=== PATIENT | male | born 2005 | race Two or more races ===

== ENCOUNTER 2024-12-18 23:21 | Observation (INO) ==
[2024-12-19 00:14] LABS: Albumin Globulin Ratio 1.8 (0.9-2); Albumin Level 4.9 gm/dl (3.4-5.0); BUN Creatinine Ratio 14.9 (10-20); Bilirubin,Total 1.1 mg/dl (0.2-1.0); Calcium 9.9 mg/dl (8.6-10.3); Creatinine Clr Calc Pharmacy 129.6 ml/min; Globulin 2.7 gm/dl (2.5-4.0); Potassium 4.2 mmol/L (3.5-5.1); Total Protein 7.6 gm/dl (6.0-8.3)
[2024-12-19 00:16] LABS: Hematocrit (blood only) 48.3 % (42.0-52.0); Hemoglobin 16.4 g/dl (14.0-18.0); Mean Corpuscular Hemoglobin 28.4 pg (25.0-34.0); Mean Corpuscular Volume 83.7 fL (80.0-100.0); Mean Platelet Volume 10.8 fL (9.4-12.4); Platelet Count 233 K/uL (130-400); RDW Coefficient of Variation 12.6 % (11.5-14.5); RDW Standard Deviation 38.3 fL (36.4-46.3); Red Blood Count 5.77 M/uL (4.70-6.10); White Blood Count 15.02 K/ul (4.8-10.8)
[2024-12-19 00:17] LABS: Basophils # (auto) 0.03 K/uL (0.00-0.20); Basophils % (auto) 0.2 %; Eosinophils # (auto) 0.02 K/uL (0.00-0.50); Eosinophils % (auto) 0.1 %; Immature Granulocytes # (auto) 0.04 K/uL (0.01-0.20); Immature Granulocytes % (auto) 0.3 %; Lymphocytes # (auto) 0.43 K/uL (1.20-3.40); Lymphocytes % (auto) 2.9 %; Monocytes % (auto) 5.3 %; Neutrophils % (auto) 91.2 %
[2024-12-19] MEDS: ONDANSETRON INJ 2 MG/ML 2 ML VIAL IV STA ×2 (00:27→03:35)
[2024-12-19] MEDS: SODIUM CHLORIDE 0.9% 1,000 ML IV ONE ×3 (00:27→03:36)
--- NOTE | 2024-12-19 00:37 | Emergency Department Note ---
Impression & Plan Vomiting, Acute dehydration, Norovirus Admit to the [facility] ED Provider Note NAME: RIAZ ACEVES AGE: 19 SEX: Male INFORMANT: Patient ED PROVIDER(S): Allyson Ruvalcaba DO CHIEF COMPLAINT: Nausea and vomiting PLAN: Disposition: Admit to the [facility] MEDICAL DECISION MAKING: this is a 19-year-old male patient who presents to the emergency department with headache and vomiting which began around 8 PM this evening. Patient is an otherwise healthy student. He denies any usual symptoms throughout the day today. He denies any significant abdominal pain. He describes multiple episodes of vomiting and some soft stool but no significant diarrhea. Laboratory studies revealed a mild leukocytosis with a white count of 15.0. H&H were stable. Glucose was 107. Renal function was normal. Urinalysis revealed trace ketones and 1+ protein. Total bilirubin was 1.1 but transaminases were normal. Patient was tachycardic on presentation with a normal blood pressure but despite giving IV crystalloids, blood pressure came down and heart rate went up. Patient was given IV Zofran for his nausea. He had no further stooling for hours here in the emergency department. Once he remained hypotensive and tachycardic, a septic protocol was performed. Patient was prophylaxed with IV cefepime. Chest x-ray was unremarkable. Lactate was normal. Procalcitonin was slightly elevated at 0.64. We initially had no source for his infection. He had no signs of meningitis. In fact, his headaches that he presented with resolved shortly after arriving here in the emergency department. He had no neck stiffness. [facility] care. Patient did finally produce a stool specimen which was positive for norovirus. Triage Nursing notes: reviewed and agree With them. Vital Signs: reviewed and unremarkable Additional History obtained from: the girlfriend is at the bedside athletic monitor: Normal sinus rhythm at a rate of 108 Differential Diagnosis: foodborne illness, viral gastritis, dehydration, viral gastroenteritis, UTI, sepsis HPI: 19 year old Male arrives for evaluation of vomiting and headache. around 8 PM this evening, the patient developed a headache and started vomiting. He tried to eat some food but he immediately began to vomit more and has continued vomiting ever since despite trying to take a nap.. PAST MEDICAL HISTORY: None, SOCIAL HISTORY: alok at [facility], [place] MEDICATIONS: none ALLERGIES: none VITALS: See Below PHYSICAL EXAMINATION: HEENT: Head - normocephalic and atraumatic. Pupils are equal, round, and reactive to light. Extraocular eye muscles are intact, and sclera are anicteric. Nose - moist nasal mucosa without discharge. Mouth - moist buccal mucosa. Oropharynx is nonerythematous and there is no tonsillar exudate or edema noted. Neck: Supple; no Cervical lymphadenopathy appreciated Heart: Tachycardic rate and rhythm. There is a normal S1 and S2 with no murmurs, clicks, or gallops appreciated. Lungs: Clear to auscultation bilaterally with no wheezes, rales, or rhonchi. Abdomen: Soft, completely nontender, nondistended, with good bowel sounds. There are no palpable pulsatile masses or hepatosplenomegaly. There is no guarding, rigidity, or rebound noted. Extremities: No evidence of cyanosis, clubbing, or edema. There are easily palpable peripheral pulses. Skin: warm and dry with good turgor and no rashes. emergency department treatment: athletic monitor, IV normal saline bolus x 3 L, IV Zofran, IV cefepime Emergency Department course: The patient was evaluated in room C-7. A complete history and physical was performed. An order was placed for continuous cardiac monitoring. The patient was in a sinus tachycardia at a rate of 108. He was bolused with 1 L of normal saline solution. This made no impact on his heart rate. He was unable to urinate. He was given a second liter of saline. He was given IV Zofran for his nausea. His heart rate continued to rise. He was given 1/3 L of normal saline solution and was finally able to urinate. Patient was feeling much better and plans were made for the patient to be discharged but his heart rate remained in the 120-130 range. Patient showed signs of orthostasis upon standing. He became pale and his blood pressure would drop. At this point the decision was made to keep the patient here in the hospital and pursue a septic workup even though the patient overall was feeling much better and was no longer vomiting. I discussed the case with the [facility] Hospitalist and they will evaluate for further inpatient care. I spoke with the patient and his girlfriend multiple times throughout his stay here in the emergency department about his persistent tachycardia and episodes of hypotension. At times, the patient would feel better and was able to drink clear liquids but then would vomit. The patient definitely continued to show signs of orthostasis with position change. Past Med/Surg History Problem List (Updated 12/19/24 @ 19:19 by Allyson Ruvalcaba DO) Norovirus (Acute) Headache Abdominal pain Sepsis Acute dehydration (Acute) Vomiting (Acute) Social History Smoking Status: Never smoker Tobacco Type: Declines Second Hand Exposure: No; Do You Dip or Chew Tobacco: No; Tobacco Cessation Education Requested by Patient: No Hx Alcohol Use: No Hx Substance Use: No Preferred Language: Brazilian Communication Ability: Effective Clip On Sunglasses Assembler Required: No Beliefs That Will Affect Care: None Current Living Situation: Other Current Living Situation Comment: [employer] student with one other roomate Feels Safe at Home: Yes Safety Concerns: Feels Safe At This Time Assistive Devices: None Allergies Allergies Allergy/AdvReac Type Severity Reaction Status Date / Time No Known Allergies Allergy Verified 12/19/24 09:15 Home Meds Home Medications Medication Instructions Recorded Confirmed No Known Home Medications 10/07/24 12/19/24 Results & Data (ED) Vital Signs Vital Signs - 24 hr 12/18/24 23:23 12/18/24 23:38 12/19/24 00:37 Temperature 36.8 C Temperature Source Temporal Artery Scan Pulse Rate 116 H 88 102 H Pulse Rate [Left Radial] Pulse Rate from SpO2 Sensor Pulse Rhythm Regular Regular Pulse Rhythm [Left Radial] Pulse Strength [Left Radial] Respiratory Rate 18 20 20 Respiratory Effort / Characteristics Non-Labored Respiratory Depth Normal Respiratory Pattern Blood Pressure 112/73 129/68 Blood Pressure [Left Arm] Blood Pressure Mean 86 86 Blood Pressure Mean [Left Arm] Pulse Oximetry 99 99 96 Oxygen Delivery Method Room Air Room Air Sepsis Recent Fever Within 48 Hours No Sepsis New/Unexplained Change in Mental Status N/A Sepsis Action Taken by Nursing No Action Required 12/19/24 01:00 12/19/24 01:00 12/19/24 01:00 Temperature Temperature Source Pulse Rate 108 H Pulse Rate [Left Radial] Pulse Rate from SpO2 Sensor 108 H Pulse Rhythm Pulse Rhythm [Left Radial] Pulse Strength [Left Radial] Respiratory Rate Respiratory Effort / Characteristics Respiratory Depth Respiratory Pattern Blood Pressure 105/67 105/67 105/67 Blood Pressure [Left Arm] Blood Pressure Mean 76 76 79 Blood Pressure Mean [Left Arm] Pulse Oximetry 93 Oxygen Delivery Method Sepsis Recent Fever Within 48 Hours Sepsis New/Unexplained Change in Mental Status Sepsis Action Taken by Nursing 12/19/24 01:30 12/19/24 02:00 12/19/24 02:40 Temperature Temperature Source Pulse Rate 120 H Pulse Rate [Left Radial] 124 H Pulse Rate from SpO2 Sensor 118 H 116 H Pulse Rhythm Pulse Rhythm [Left Radial] Regular Pulse Strength [Left Radial] Normal Respiratory Rate 14 20 Respiratory Effort / Characteristics Non-Labored Spontaneous Respiratory Depth Normal Respiratory Pattern Regular Blood Pressure 96/64 L 100/60 Blood Pressure [Left Arm] 84/57 L Blood Pressure Mean 74 73 Blood Pressure Mean [Left Arm] 66 Pulse Oximetry 96 94 94 Oxygen Delivery Method Room Air Sepsis Recent Fever Within 48 Hours Sepsis New/Unexplained Change in Mental Status Sepsis Action Taken by Nursing 12/19/24 03:05 12/19/24 03:30 12/19/24 03:30 Temperature Temperature Source Pulse Rate 123 H 145 H 133 H Pulse Rate [Left Radial] Pulse Rate from SpO2 Sensor 123 H 135 H Pulse Rhythm Pulse Rhythm [Left Radial] Pulse Strength [Left Radial] Respiratory Rate 13 25 H Respiratory Effort / Characteristics Respiratory Depth Respiratory Pattern Blood Pressure 104/62 124/101 H Blood Pressure [Left Arm] Blood Pressure Mean 76 106 Blood Pressure Mean [Left Arm] Pulse Oximetry 96 94 Oxygen Delivery Method Sepsis Recent Fever Within 48 Hours Sepsis New/Unexplained Change in Mental Status Sepsis Action Taken by Nursing 12/19/24 04:01 12/19/24 04:30 12/19/24 05:00 Temperature Temperature Source Pulse Rate 122 H 124 H 126 H Pulse Rate [Left Radial] Pulse Rate from SpO2 Sensor 121 H 127 H Pulse Rhythm Pulse Rhythm [Left Radial] Pulse Strength [Left Radial] Respiratory Rate 20 24 21 Respiratory Effort / Characteristics Respiratory Depth Respiratory Pattern Blood Pressure 89/53 L 82/49 L 99/50 L Blood Pressure [Left Arm] Blood Pressure Mean 60 57 69 Blood Pressure Mean [Left Arm] Pulse Oximetry 94 95 94 Oxygen Delivery Method Sepsis Recent Fever Within 48 Hours Sepsis New/Unexplained Change in Mental Status Sepsis Action Taken by Nursing 12/19/24 05:30 12/19/24 06:30 12/19/24 08:00 Temperature Temperature Source Pulse Rate 122 H 124 H Pulse Rate [Left Radial] 128 H Pulse Rate from SpO2 Sensor 123 H 122 H Pulse Rhythm Pulse Rhythm [Left Radial] Pulse Strength [Left Radial] Respiratory Rate 22 15 20 Respiratory Effort / Characteristics Respiratory Depth Respiratory Pattern Blood Pressure 100/51 L 86/59 L Blood Pressure [Left Arm] 106/69 Blood Pressure Mean 64 72 Blood Pressure Mean [Left Arm] 81 Pulse Oximetry 93 95 94 Oxygen Delivery Method Room Air Sepsis Recent Fever Within 48 Hours Sepsis New/Unexplained Change in Mental Status Sepsis Action Taken by Nursing Laboratory Data 12/19/24 07:46 12/19/24 16:17 Lab Results 12/18/24 12/19/24 12/19/24 Range/Units 23:45 00:00 06:50 WBC 15.02 H (4.8-10.8) K/ul RBC 5.77 (4.70-6.10) M/uL Hgb 16.4 (14.0-18.0) g/dl Hct 48.3 (42.0-52.0) % MCV 83.7 (80.0-100.0) fL MCH 28.4 (25.0-34.0) pg MCHC 34.0 (32.0-36.0) g/dL RDW Std Deviation 38.3 (36.4-46.3) fL RDW Coeff of Yodit 12.6 (11.5-14.5) % Plt Count 233 (130-400) K/uL MPV 10.8 (9.4-12.4) fL Immature Gran % (Auto) 0.3 % Neut % (Auto) 91.2 % Lymph % (Auto) 2.9 % [place] % (Auto) 5.3 % Eos % (Auto) 0.1 % Baso % (Auto) 0.2 % Neut # (Auto) 13.70 H (1.40-6.50) K/uL Lymph # (Auto) 0.43 L (1.20-3.40) K/uL [place] # (Auto) 0.80 H (0.11-0.59) K/uL Eos # (Auto) 0.02 (0.00-0.50) K/uL Baso # (Auto) 0.03 (0.00-0.20) K/uL Immature Gran # (Auto) 0.04 (0.01-0.20) K/uL Sodium 138 (136-145) mmol/L Potassium 4.2 (3.5-5.1) mmol/L Chloride 104 (98-107) mmol/L Carbon Dioxide 27 (21-32) mmol/L Anion Gap 7 (3-11) BUN 15 (6-23) mg/dl Creatinine 1.01 (0.6-1.4) mg/dl Est Cr Clr Drug Dosing 129.6 ml/min eGFR 108.51 BUN/Creatinine Ratio 14.9 (10-20) Glucose 107 H (70-99(Fasting)) mg/dl Lactate (0.4-2.0) mmol/L Calcium 9.9 (8.6-10.3) mg/dl Magnesium (1.7-2.4) mg/dl Total Bilirubin 1.1 H (0.2-1.0) mg/dl Direct Bilirubin (0-0.2) mg/dl AST 22 (13-39) U/L ALT 32 (7-52) U/L Alkaline Phosphatase 59 (34-104) U/L Total Creatine Kinase (30-223) U/L C-Reactive Protein (0-0.5) mg/dl Total Protein 7.6 (6.0-8.3) gm/dl Albumin 4.9 (3.4-5.0) gm/dl Globulin 2.7 (2.5-4.0) gm/dl Albumin/Globulin Ratio 1.8 (0.9-2) Lipase (11-82) U/L Procalcitonin (0-0.5) ng/ml Urine Color Yellow Urine Appearance Clear (Clear) Urine pH 8.5 H (4.5-7.5) Ur Specific [place] 1.033 H (1.000-1.030) Urine Protein 1+ H (Negative) Urine Glucose (UA) Negative (Negative) Urine Ketones Trace H (Negative) Urine Blood Negative (Negative) Urine Nitrite Negative (Negative) Urine Bilirubin Negative (Negative) Urine Urobilinogen Negative (Negative) Ur Leukocyte Esterase Negative (Negative) Urine WBC (Auto) 0-5 (0-5) /hpf Urine RBC (Auto) 0-2 (0-2) /hpf U Hyaline Cast (Auto) 0-2 (0-2) /lpf U Epithel Cells (Auto) 0-2 (0-2) /hpf Urine Bacteria (Auto) None Seen (None Seen) Adenovirus (PCR) Not Detected (NotDetected) B. pertussis DNA (PCR) Not Detected (NotDetected) B.parapertussis DNA PCR Not Detected (NotDetected) C. pneumoniae DNA (PCR) Not Detected (NotDetected) Coronavirus OC43 (PCR) Not Detected (NotDetected) Coronavirus HKU1 (PCR) Not Detected (NotDetected) Coronavirus 229E (PCR) Not Detected (NotDetected) SARS-CoV-2 (PCR) Not Detected (NotDetected) Coronavirus NL63 (PCR) Not Detected (NotDetected) Human Metapneumovir PCR Not Detected (NotDetected) Influenza Type A (PCR) Not Detected (NotDetected) Influenza Type B (PCR) Not Detected (NotDetected) M. pneumoniae (PCR) Not Detected (NotDetected) Parainfluenza 1 (PCR) Not Detected (NotDetected) Parainfluenza 2 (PCR) Not Detected (NotDetected) Parainfluenza 3 (PCR) Not Detected (NotDetected) Parainfluenza 4 (PCR) Not Detected (NotDetected) RSV (PCR) Not Detected (NotDetected) Entero/Rhino (PCR) Not Detected (NotDetected) 12/19/24 12/19/24 Range/Units 07:46 07:53 WBC 7.72 (4.8-10.8) K/ul RBC (4.70-6.10) M/uL Hgb (14.0-18.0) g/dl Hct (42.0-52.0) % MCV (80.0-100.0) fL MCH (25.0-34.0) pg MCHC (32.0-36.0) g/dL RDW Std Deviation (36.4-46.3) fL RDW Coeff of Yodit (11.5-14.5) % Plt Count (130-400) K/uL MPV (9.4-12.4) fL Immature Gran % (Auto) 0.4 % Neut % (Auto) 93.3 % Lymph % (Auto) 3.0 % [place] % (Auto) 3.2 % Eos % (Auto) 0.0 % Baso % (Auto) 0.1 % Neut # (Auto) 7.20 H (1.40-6.50) K/uL Lymph # (Auto) 0.23 L (1.20-3.40) K/uL [place] # (Auto) 0.25 (0.11-0.59) K/uL Eos # (Auto) 0.00 (0.00-0.50) K/uL Baso # (Auto) 0.01 (0.00-0.20) K/uL Immature Gran # (Auto) 0.03 (0.01-0.20) K/uL Sodium 138 (136-145) mmol/L Potassium 3.7 (3.5-5.1) mmol/L Chloride 107 (98-107) mmol/L Carbon Dioxide 24 (21-32) mmol/L Anion Gap 7 (3-11) BUN 15 (6-23) mg/dl Creatinine 1.01 (0.6-1.4) mg/dl Est Cr Clr Drug Dosing 129.6 ml/min eGFR 108.51 BUN/Creatinine Ratio 14.9 (10-20) Glucose 113 H (70-99(Fasting)) mg/dl Lactate 1.0 (0.4-2.0) mmol/L Calcium 8.7 (8.6-10.3) mg/dl Magnesium 1.6 L (1.7-2.4) mg/dl Total Bilirubin 1.2 H (0.2-1.0) mg/dl Direct Bilirubin 0.2 (0-0.2) mg/dl AST 18 (13-39) U/L ALT 26 (7-52) U/L Alkaline Phosphatase 46 (34-104) U/L Total Creatine Kinase 258 H (30-223) U/L C-Reactive Protein 3.44 H (0-0.5) mg/dl Total Protein 6.3 (6.0-8.3) gm/dl Albumin 4.1 (3.4-5.0) gm/dl Globulin (2.5-4.0) gm/dl Albumin/Globulin Ratio (0.9-2) Lipase 19 (11-82) U/L Procalcitonin 0.64 H (0-0.5) ng/ml Urine Color Urine Appearance (Clear) Urine pH (4.5-7.5) Ur Specific [place] (1.000-1.030) Urine Protein (Negative) Urine Glucose (UA) (Negative) Urine Ketones (Negative) Urine Blood (Negative) Urine Nitrite (Negative) Urine Bilirubin (Negative) Urine Urobilinogen (Negative) Ur Leukocyte Esterase (Negative) Urine WBC (Auto) (0-5) /hpf Urine RBC (Auto) (0-2) /hpf U Hyaline Cast (Auto) (0-2) /lpf U Epithel Cells (Auto) (0-2) /hpf Urine Bacteria (Auto) (None Seen) Adenovirus (PCR) (NotDetected) B. pertussis DNA (PCR) (NotDetected) B.parapertussis DNA PCR (NotDetected) C. pneumoniae DNA (PCR) (NotDetected) Coronavirus OC43 (PCR) (NotDetected) Coronavirus HKU1 (PCR) (NotDetected) Coronavirus 229E (PCR) (NotDetected) SARS-CoV-2 (PCR) (NotDetected) Coronavirus NL63 (PCR) (NotDetected) Human Metapneumovir PCR (NotDetected) Influenza Type A (PCR) (NotDetected) Influenza Type B (PCR) (NotDetected) M. pneumoniae (PCR) (NotDetected) Parainfluenza 1 (PCR) (NotDetected) Parainfluenza 2 (PCR) (NotDetected) Parainfluenza 3 (PCR) (NotDetected) Parainfluenza 4 (PCR) (NotDetected) RSV (PCR) (NotDetected) Entero/Rhino (PCR) (NotDetected) Administered Medications Sodium Chloride (Nss) 1,000 mls @ 125 mls/hr IV .Q8H RODRI Stop: 12/20/24 01:14 Last Admin: 12/19/24 17:15 Dose: 125 mls/hr Documented By: Infusion: 12/19/24 17:15 Dose: Infused Documented By: Admin: 12/19/24 11:05 Dose: 125 mls/hr Documented By: TANNA Cefepime HCl (Maxipime 2000mg) 2,000 mg in 20 mls @ 5 mls/min IV Q8H RODRI; Protocol Stop: 12/29/24 15:59 Last Admin: 12/19/24 17:11 Dose: 5 mls/min Documented By: EP Metronidazole (Flagyl) 500 mg in 100 mls @ 100 mls/hr IV Q8H RODRI; Protocol Stop: 12/29/24 16:59 Last Infusion: 12/19/24 18:15 Dose: Infused Documented By: Admin: 12/19/24 17:12 Dose: 100 mls/hr Documented By: EP Promethazine HCl (Phenergan) 12.5 mg in 50.5 mls @ 202 mls/hr IV Q6H PRN PRN Reason: Nausea And Vomiting Stop: 01/18/25 12:51 Last Admin: 12/19/24 18:54 Dose: 202 mls/hr Documented By: EP Acetaminophen (Ofirmev) 1,000 mg in 100 mls @ 400 mls/hr IV Q8H PRN PRN Reason: Pain or Fever Stop: 12/22/24 12:51 Last Admin: 12/19/24 18:57 Dose: 400 mls/hr Documented By: EP Ketorolac Tromethamine (Ketorolac Tromethamine 15 Mg/Ml Vial) 10 mg IM Q6H PRN PRN Reason: Pain Last Admin: 12/19/24 15:26 Dose: 10 mg Documented By: EP Ondansetron HCl (Ondansetron Inj 2 Mg/Ml 2 Ml Vial) 4 mg IV Q6H PRN PRN Reason: Nausea Stop: 01/18/25 08:30 Last Admin: 12/19/24 15:28 Dose: 4 mg Documented By: EP Discontinued Medications Sodium Chloride (Nss) 1,000 mls @ 999 mls/hr IV .Q1H1M ONE Stop: 12/19/24 01:22 Last Infusion: 12/19/24 01:29 Dose: Infused Documented By: Admin: 12/19/24 00:27 Dose: 999 mls/hr Documented By: DVEI Sodium Chloride (Nss) 1,000 mls @ 999 mls/hr IV .Q1H1M ONE Stop: 12/19/24 02:26 Last Infusion: 12/19/24 03:49 Dose: Infused Documented By: Admin: 12/19/24 01:28 Dose: 999 mls/hr Documented By: DEVI Sodium Chloride (Nss) 1,000 mls @ 999 mls/hr IV .Q1H1M ONE Stop: 12/19/24 04:25 Last Infusion: 12/19/24 05:50 Dose: Infused Documented By: Admin: 12/19/24 03:36 Dose: 999 mls/hr Documented By: DEVI Cefepime HCl (Maxipime 2000mg) 2,000 mg in 20 mls @ 5 mls/min IV NOW STA; Protocol Stop: 12/19/24 07:47 Last Admin: 12/19/24 08:01 Dose: 5 mls/min Documented By: TANNA Metronidazole (Flagyl) 500 mg in 100 mls @ 100 mls/hr IV NOW STA; Protocol Stop: 12/19/24 09:48 Last Infusion: 12/19/24 11:05 Dose: Infused Documented By: Admin: 12/19/24 09:54 Dose: 100 mls/hr Documented By: TANNA Pantoprazole Sodium (Protonix) 40 mg in 10 mls @ 5 mls/min IV NOW ONE Stop: 12/19/24 08:50 Last Admin: 12/19/24 09:54 Dose: 5 mls/min Documented By: TANNA Magnesium Sulfate/Dextrose (Magnesium Sulfate / D5w) 1 gm in 100 mls @ 50 mls/hr IV ONE ONE Stop: 12/19/24 11:05 Last Infusion: 12/19/24 13:35 Dose: Infused Documented By: Admin: 12/19/24 11:05 Dose: 50 mls/hr Documented By: TANNA Ioversol (Optiray 320 100ml) 94 ml IV ONCE ONE Stop: 12/19/24 09:06 Last Admin: 12/19/24 09:05 Dose: 94 ml Documented By: AMRITA Ondansetron HCl (Ondansetron Inj 2 Mg/Ml 2 Ml Vial) 4 mg IV NOW STA Stop: 12/19/24 00:23 Last Admin: 12/19/24 00:27 Dose: 4 mg Documented By: DEVI Ondansetron HCl (Ondansetron Inj 2 Mg/Ml 2 Ml Vial) 4 mg IV NOW STA Stop: 12/19/24 03:32 Last Admin: 12/19/24 03:35 Dose: 4 mg Documented By: DEVI Imaging Data Radiologist's Impression: Chest X-Ray 12/19/24 07:08 XR chest 1V portable CLINICAL HISTORY: eval for sepsis COMPARISON STUDY: None FINDINGS: Heart size and pulmonary vasculature are normal. Inspiration is shallow. There is mild stranding opacity in the lung bases. No other consolidation or pleural effusion. No pneumothorax. IMPRESSION: Shallow inspiration with likely mild lung base atelectasis. Follow- up as clinically indicated. ACT 112: Negative or not required by law. Electronically signed by: Donald Crowe M.D. 12/19/2024 8:12 AM Abdomen/Pelvis CT 12/19/24 08:[address] WITH IV CONTRAST CT DOSE: 1238.58 mGy.cm HISTORY: eval for appy or sbo TECHNIQUE: Multiaxial CT images of the abdomen and pelvis were performed following the IV administration of 90 cc of Optiray, A dose lowering technique was utilized adhering to the principles of ALARA. COMPARISON STUDY: None FINDINGS: There is mild dependent atelectasis in lung bases. ABDOMEN: Liver, gallbladder, spleen, pancreas, and adrenal glands are unremarkable. Kidneys show no hydronephrosis or calculi. No abdominal aortic aneurysm. Pelvis: Prostate is unremarkable. Urinary bladder is nondistended. There is moderate retained stool. Normal appendix. No bowel inflammation or obstruction. No free fluid, free air, or abscess. No enlarged adenopathy. Osseous structures: No acute osseous findings. IMPRESSION: No acute findings. ACT 112: Negative or not required by law. The above report was generated using voice recognition software. It may contain grammatical, syntax or spelling errors. Electronically signed by: Donald Crowe M.D. 12/19/2024 9:19 AM Discharge Plan Visit Data Chief Complaint: Vomiting Stated Complaint: ABD PAIN,VOMITING ED Provider: Allyson Ruvalcaba Discharge Problem: Vomiting, Acute dehydration, Norovirus Patient Disposition: Admitted As Inpatient Discharge Instructions Interventions: ED Discharge Assessment Last Done: 12/19/24 11:50
[2024-12-19 01:12] LABS: Appearance Urine Clear (Clear); Bacteria Urine Automated None Seen (None Seen); Bilirubin Urine Negative (Negative); Blood Urine Negative (Negative); Cast Urine Automated 0-2 /lpf (0-2); Color Urine Yellow; Epithelial Cell Urine Auto 0-2 /hpf (0-2); Glucose Urine UA Negative (Negative); Ketones Urine Trace (Negative); Leukocyte Esterase Urine Negative (Negative); Nitrite Urine Negative (Negative); Protein Urine 1+ (Negative); RBC Urine Automated 0-2 /hpf (0-2); Specific Gravity Urine 1.033 (1.000-1.030); Urobilinogen Urine Negative (Negative); WBC Urine Automated 0-5 /hpf (0-5); pH Urine 8.5 (4.5-7.5)
[2024-12-19] MEDS: CEFEPIME 2000MG 2,000 MG/20 ML SYR IV STA (08:01)
[2024-12-19 08:06] LABS: White Blood Count 7.72 K/ul (4.8-10.8)
--- NOTE | 2024-12-19 08:13 | XRay Report ---
XR chest 1V portable CLINICAL HISTORY: eval for sepsis COMPARISON STUDY: None FINDINGS: Heart size and pulmonary vasculature are normal. Inspiration is shallow. There is mild stra nding opacity in the lung bases. No other consolidation or pleural effusion. No pneumothorax. IMPRESSION: Shallow inspiration with likely mild lung base atelectasis. Follow-up as clinically nico cated. ACT 112: Negative or not required by law. Electronically signed by: Donald Crowe M.D. 12/19/2024 8:12 AM
[2024-12-19 08:35] LABS: Basophils # (auto) 0.01 K/uL (0.00-0.20); Basophils % (auto) 0.1 %; Immature Granulocytes # (auto) 0.03 K/uL (0.01-0.20); Immature Granulocytes % (auto) 0.4 %; Lymphocytes # (auto) 0.23 K/uL (1.20-3.40); Monocytes # (auto) 0.25 K/uL (0.11-0.59); Monocytes % (auto) 3.2 %; Neutrophils % (auto) 93.3 %
[2024-12-19 08:37] LABS: Adenovirus PCR Not Detected (NotDetected); Bordetella parapertussis PCR Not Detected (NotDetected); Bordetella pertussis PCR Not Detected (NotDetected); Chlamydia pneumoniae PCR Not Detected (NotDetected); Coronavirus 229E PCR Not Detected (NotDetected); Coronavirus CoV-2 (COVID19)PCR Not Detected (NotDetected); Coronavirus HKU1 PCR Not Detected (NotDetected); Coronavirus NL63 PCR Not Detected (NotDetected); Coronavirus OC43PCR Not Detected (NotDetected); Human Metapneumovirus PCR Not Detected (NotDetected); Influenza A PCR Not Detected (NotDetected); Influenza B PCR Not Detected (NotDetected); Mycoplasma pneumoniae PCR Not Detected (NotDetected); Parainfluenza Virus 1 PCR Not Detected (NotDetected); Parainfluenza Virus 2 PCR Not Detected (NotDetected); Parainfluenza Virus 3 PCR Not Detected (NotDetected); Parainfluenza Virus 4 PCR Not Detected (NotDetected); Respiratory Syncytial VirusPCR Not Detected (NotDetected); Rhinovirus/Enterovirus PCR Not Detected (NotDetected)
--- NOTE | 2024-12-19 08:37 | History & Physical Report ---
Date of Service December 19, 2024 Assessment & Plan (1) Vomiting: (2) Sepsis: (3) Abdominal pain: (4) Headache: Plan This is a 19 year old gentleman with no past medical history who presented to the ED on 12/19/24 for a chief complaint of headache and vomiting. #sepsis POA/abdominal pain/vomiting Etiology of sepsis currently unknown but likely secondary to abdominal source. CTAP negative; CXR negative Urinalysis negative; respiratory biofire negative. Lactate WNL, procal elevated at 0.64, CRP elevated at 3.44 BMP w/ stable renal function/electrolytes. Mag low at 1.6 s/p IV repletion TB 1.1 --> 1.2, AST/ALT WNL WBC 15.02 --> 7.72 CK and Lipase pending. BC pending; stool biofire pending Continue IV Cefepime + Flagyl on admission, tailor based on culture results. PRN for nausea/vomitinst line Zofran, 2nd line phenergan, 3rd line compazine IVF fluids continued upon admission maintain NPO status pending stabilization of symptoms #headache Kernig and brudzinski sign negative Pain control w/ Tylenol 1st line, Toradol 2nd line (max 6 doses) DVT prophylaxis: SCD's, encourage ambulation Code status: full Case was discussed with Dr. Rueda at time of admission. History of Present Illness Primary Care Provider: [facility] This is a 19 year old gentleman with no past medical history who presented to the ED on 12/19/24 for a chief complaint of headache and vomiting. Patient reports that around 8pm he had a sudden onset of a severe headache. He then began vomiting profusely there after. He has not had a BM since this began. He admits to epigastric abdominal pain. He denies neck pain. He is experiencing muscle cramps and photophobia. Reports since he got to the ER that his headache has waxed and waned but is triggered most by the lights. He denies a history of migraines but reports his mother has a history of them. Denies fevers or chills. Denies any urinary symptoms. Denies tobacco, alcohol, or drug use, including no marijuana use. He reports this has never happened before. He denies sick contacts recently. While in the ED he was found to have leukocytosis of 15.02, negative CXR. He was hypotensive and tachycardic. He was given 3L of NSS, IV Cefepime, and Zofran. He had just had an episode of emesis prior to our encounter. Allergies Allergy/AdvReac Type Severity Reaction Status Date / Time No Known Allergies Allergy Verified 12/19/24 09:15 Home Medications Medication Instructions Recorded Confirmed Type No Known Home Medications 10/07/24 12/19/24 History Past Med/Surg History Problem List (Updated 12/19/24 @ 19:19 by Allyson Ruvalcaba, DO) Norovirus (Acute) Headache Abdominal pain Sepsis Acute dehydration (Acute) Vomiting (Acute) Social History Smoking Status: Never smoker Tobacco Type: Declines Second Hand Exposure: No; Do You Dip or Chew Tobacco: No; Hx Alcohol Use: No Hx Substance Use: No Preferred Language: [place] Communication Ability: Effective Particle Board Supervisor Required: No Beliefs That Will Affect Care: None Current Living Situation: Other Current Living Situation Comment: [employer] student with one other roomate Feels Safe at Home: Yes Assistive Devices: None Physical Exam Constitutional: WD/WN, vitals as above Respiratory: normal respiratory effort, lungs clear to auscultation Cardiovascular: tachycardia, no murmur, no edema Gastrointestinal (Abdomen): + tenderness to palpation in upper abdom inal quadrants. Neurologic: negative Kernig and negative brudzinski Psychiatric: A+Ox3, euthymic affect Results & Data Results & Data Vital Signs (Past 12 Hours) Vital Signs Temp Pulse Pulse Resp BP BP Pulse Ox 12/19/24 08:00 128 H 20 106/69 94 12/19/24 06:30 124 H 15 86/59 L 95 12/19/24 05:30 122 H 22 100/51 L 93 12/19/24 05:00 126 H 21 99/50 L 94 12/19/24 04:30 124 H 24 82/49 L 95 12/19/24 04:01 122 H 20 89/53 L 94 12/19/24 03:30 133 H 25 H 124/101 H 94 12/19/24 03:30 145 H 12/19/24 03:05 123 H 13 104/62 96 12/19/24 02:40 124 H 20 84/57 L 94 12/19/24 02:00 100/60 94 12/19/24 01:30 120 H 14 96/64 L 96 12/19/24 01:00 108 H 105/67 93 12/19/24 01:00 105/67 12/19/24 01:00 105/67 12/19/24 00:37 102 H 20 129/68 96 12/18/24 23:38 88 20 99 12/18/24 23:23 36.8 C 116 H 18 112/73 99 O2 Del Method 12/19/24 08:00 Room Air 12/19/24 06:30 12/19/24 05:30 12/19/24 05:00 12/19/24 04:30 12/19/24 04:01 12/19/24 03:30 12/19/24 03:30 12/19/24 03:05 12/19/24 02:40 Room Air 12/19/24 02:00 12/19/24 01:30 12/19/24 01:00 12/19/24 01:00 12/19/24 01:00 12/19/24 00:37 12/18/24 23:38 Room Air 12/18/24 23:23 Room Air Supervising Physician Co-Signing Physician Notes During face to face encounter, I obtained a history and physical examination, and I discussed plan of care and answered all of the patient's questions.. I discussed plan of care with ALEX Sultana. I reviewed above note and agree with it except for the following: Patient admitted with sepsis. Given his tachycardia and fever, concern over bacterial infection. Place antibiotics, doubt meningitis as no nuchal rigiditiy. awaiting stool samples. order ct scan of abd due to abd. pain. PG Care Time/CCT Total # of Minutes Spent Total Time Spent with Patient: Total time spent is greater than 50% in coordination of care (as documented) at patient's floor/unit and/or counseling patient: Coding Level of Care Code 80442 INT INP/OBS CARE 3/75MIN Diagnoses Vomiting R11.10 Sepsis A41.9 Abdominal pain R10.9 Headache R51.9
[2024-12-19 09:02] LABS: Albumin Level 4.1 gm/dl (3.4-5.0); BUN Creatinine Ratio 14.9 (10-20); Bilirubin Direct 0.2 mg/dl (0-0.2); Bilirubin,Total 1.2 mg/dl (0.2-1.0); C Reactive Protein 3.44 mg/dl (0-0.5); Calcium 8.7 mg/dl (8.6-10.3); Creatinine Clr Calc Pharmacy 129.6 ml/min; Magnesium 1.6 mg/dl (1.7-2.4); Potassium 3.7 mmol/L (3.5-5.1); Total Protein 6.3 gm/dl (6.0-8.3)
[2024-12-19] MEDS: OPTIRAY 320 100ml IV ONE (09:05)
--- NOTE | 2024-12-19 09:21 | CT Scan Report ---
ABDOMEN AND PELVIS CT WITH IV CONTRAST CT DOSE: 1238.58 mGy.cm HISTORY: eval for appy or sbo TECHNIQUE: Multiaxial CT images of the abdomen and pelvis were performed following the IV administrat ion of 90 cc of Optiray, A dose lowering technique was utilized adhering to the principles of ALARA. COMPARISON STUDY: None FINDINGS: There is mild dependent atelectasis in lung bases. ABDOMEN: Liver, gallbladder, spleen, pancreas, and adrenal glands are unremarkable. Kidneys show no h ydronephrosis or calculi. No abdominal aortic aneurysm. Pelvis: Prostate is unremarkable. Urinary bladder is nondistended. There is moderate retained stool. Normal appendix. No bowel inflammation or obstruction. No free fluid, free air, or abscess. No enlarg ed adenopathy. Osseous structures: No acute osseous findings. IMPRESSION: No acute findings. ACT 112: Negative or not required by law. The above report was generated using voice recognition software. It may contain grammatical, syntax o r spelling errors. Electronically signed by: Donald Crowe M.D. 12/19/2024 9:19 AM
[2024-12-19] MEDS: PANTOprazole 40 MG/10 ML SYR IV ONE (09:54)
[2024-12-19] MEDS: metroNIDAZOLE 500 MG/100 ML BAG IV STA (09:54)
[2024-12-19] MEDS: SODIUM CHLORIDE 0.9% 1,000 ML IV SCH (11:05)
[2024-12-19] MEDS: MAGNESIUM SULFATE / D5W 1 GM/100 ML BAG IV ONE (11:05)
[2024-12-19] MEDS ORDERED: PROCHLORPERAZINE 5 MG in SYRINGE 4 ML IV PRN (12:52)
--- NOTE | 2024-12-19 14:11 | Electrocardiogram Report ---
Test Reason : Blood Pressure : */* mmHG Vent. Rate : 114 BPM Atrial Rate : 114 BPM P-R Int : 144 ms QRS Dur : 84 ms QT Int : 310 ms P-R-T Axes : 62 68 31 degrees QTcB Int : 427 ms Sinus tachycardia Otherwise normal ECG No previous ECGs available Confirmed by Moni Harden (Joel) on 12/19/2024 2:11:33 PM Referred By: REFERRED SELF Confirmed By: Moni Harden
[2024-12-19 15:02] LABS: Adenovirus F 40/41 PCR Not Detected (NotDetected); Astrovirus PCR Not Detected (NotDetected); Campylobacter PCR Not Detected (NotDetected); Cryptosporidium PCR Not Detected (NotDetected); Cyclospora cayetanensis PCR Not Detected (NotDetected); Entamoeba histolytica PCR Not Detected (NotDetected); Enteroaggregative E.coli(EAEC) Not Detected (NotDetected); Enteropathogenic E.coli (EPEC) Not Detected (NotDetected); Enterotoxigenic E.coli (ETEC) Not Detected (NotDetected); Giardia lamblia PCR Not Detected (NotDetected); Plesiomonas shigelloides PCR Not Detected (NotDetected); Rotavirus A PCR Not Detected (NotDetected); Salmonella PCR Not Detected (NotDetected); Sapovirus PCR Not Detected (NotDetected); Shiga-like Toxin E.coli (STEC) Not Detected (NotDetected); Shigella/Enteroinvasive E.coli Not Detected (NotDetected); Vibrio cholerae PCR Not Detected (NotDetected); Vibrio species PCR Not Detected (NotDetected); Yersinia enterocolitica PCR Not Detected (NotDetected)
[2024-12-19 15:05] LABS: Norovirus GI/GII PCR DETECTED (NotDetected)
[2024-12-19] MEDS: KETOROLAC TROMETHAMINE 15 MG/ML VIAL IM PRN (15:26)
[2024-12-19] MEDS: ONDANSETRON INJ 2 MG/ML 2 ML VIAL IV PRN (15:28)
[2024-12-19 17:01] LABS: BUN Creatinine Ratio 14.1 (10-20); Calcium 8.4 mg/dl (8.6-10.3); Potassium 3.4 mmol/L (3.5-5.1)
[2024-12-19] MEDS: CEFEPIME 2000MG 2,000 MG/20 ML SYR IV SCH (17:11)
[2024-12-19] MEDS: metroNIDAZOLE 500 MG/100 ML BAG IV SCH (17:12)
[2024-12-19] MEDS: PROMETHAZINE 12.5 MG/50.5 ML BAG IV PRN (18:54)
[2024-12-19] MEDS: ACETAMINOPHEN 1,000 MG/100 ML VIAL IV PRN (18:57)
[2024-12-19] MEDS: PANTOprazole 40 MG/10 ML SYR IV SCH (21:51)
[2024-12-20 07:48] LABS: BUN Creatinine Ratio 12.4 (10-20); C Reactive Protein 8.81 mg/dl (0-0.5); Calcium 8.1 mg/dl (8.6-10.3); Creatinine Clr Calc Pharmacy 148.6 ml/min; Potassium 3.5 mmol/L (3.5-5.1)
[2024-12-20 08:06] LABS: Basophils # (auto) 0.01 K/uL (0.00-0.20); Basophils % (auto) 0.2 %; Eosinophils # (auto) 0.02 K/uL (0.00-0.50); Eosinophils % (auto) 0.4 %; Hematocrit (blood only) 38.2 % (42.0-52.0); Immature Granulocytes # (auto) 0.01 K/uL (0.01-0.20); Immature Granulocytes % (auto) 0.2 %; Lymphocytes # (auto) 0.57 K/uL (1.20-3.40); Lymphocytes % (auto) 11.4 %; Mean Corpuscular Volume 85.1 fL (80.0-100.0); Mean Platelet Volume 11.1 fL (9.4-12.4); Monocytes # (auto) 0.57 K/uL (0.11-0.59); Monocytes % (auto) 11.4 %; Neutrophils # (auto) 3.82 K/uL (1.40-6.50); Neutrophils % (auto) 76.4 %; Platelet Count 149 K/uL (130-400); RDW Coefficient of Variation 12.7 % (11.5-14.5); RDW Standard Deviation 39.5 fL (36.4-46.3); Red Blood Count 4.49 M/uL (4.70-6.10)
[2024-12-20] MEDS: SODIUM CHLORIDE 0.9% 1,000 ML IV SCH (20:13)
--- NOTE | 2024-12-20 22:41 | Hospitalist Progress Note ---
Date of Service December 20, 2024 Assessment & Plan (1) Vomiting: (2) Sepsis: (3) Abdominal pain: (4) Headache: Plan This is a 19 year old gentleman with no past medical history who presented to the ED on 12/19/24 for a chief complaint of headache and vomiting. #sepsis POA/abdominal pain/vomiting Sepsis due to norovirus GI/GII BC pending; stool biofire norovirus CTAP negative; CXR negative Urinalysis negative; respiratory biofire negative. Lactate WNL, procal elevated at 0.64, CRP elevated at 3.44 BMP w/ stable renal function/electrolytes. Mag low at 1.6 s/p IV repletion TB 1.1 --> 1.2, AST/ALT WNL WBC 15.02 --> 7.72 Lipase negative no onger with leukocytosis stop IV Cefepime + Flagyl on admission, tailor based on culture results. started diet, will continue IVF Plan to discharge in AM if no worsening off antibiotics. #headache Kernig and brudzinski sign negative Pain control w/ Tylenol 1st line, Toradol 2nd line (max 6 doses) resolved DVT prophylaxis: SCD's, encourage ambulation Code status: full Admission and Anticipated Discharge Date Admission Date: December 19, 2024 Subjective Patient reports feeling much better. Physical Exam Constitutional: WD/WN, vitals as above (smiling) Neck: trachea midline, no thyromegaly Respiratory: not using accessory muscles to breath Cardiovascular: monitor: Rate in 80's-90's Results & Data Results & Data Vital Signs (Past 12 Hours) Vital Signs Temp Pulse Resp BP Pulse Ox O2 Del Method 12/20/24 20:01 36.8 C 81 16 109/76 97 Room Air 12/20/24 15:48 37.0 C 87 18 99/67 L 96 Room Air 12/20/24 11:28 37.1 C 89 18 108/70 95 Room Air PG Care Time/CCT Total # of Minutes Spent Total Time Spent with Patient: Total time spent is greater than 50% in coordination of care (as documented) at patient's floor/unit and/or counseling patient: Coding Level of Care Code 72901 SUB INP/OBS CARE 3/50MIN Diagnoses Vomiting R11.10 Sepsis A41.9 Abdominal pain R10.9 Headache R51.9
[2024-12-21 07:55] LABS: Hematocrit (blood only) 39.8 % (42.0-52.0); Hemoglobin 13.5 g/dl (14.0-18.0); Mean Corpuscular Hgb Conc 33.9 g/dL (32.0-36.0); Mean Corpuscular Volume 85.4 fL (80.0-100.0); Mean Platelet Volume 11.2 fL (9.4-12.4); Platelet Count 161 K/uL (130-400); RDW Coefficient of Variation 12.9 % (11.5-14.5); RDW Standard Deviation 39.7 fL (36.4-46.3); Red Blood Count 4.66 M/uL (4.70-6.10); White Blood Count 3.85 K/ul (4.8-10.8)
[2024-12-21 08:03] VITALS: BP 106/69; RESP 18; TEMP 98.2; O2SAT 95
[2024-12-21 08:11] LABS: BUN Creatinine Ratio 7.1 (10-20); Calcium 8.8 mg/dl (8.6-10.3); Creatinine Clr Calc Pharmacy 155.9 ml/min; Potassium 3.4 mmol/L (3.5-5.1)
--- NOTE | 2024-12-21 11:26 | Discharge Summary ---
Discharge Summary Date of Service December 21, 2024 Principal Dx & Hospital Course #1 = Principal Diagnosis (1) Norovirus: (2) Sepsis: (3) Headache: Plan This is a 19 year old gentleman with no past medical history who presented to the ED on 12/19/24 for a chief complaint of headache and vomiting. #sepsis POA/abdominal pain/vomiting Sepsis due to norovirus GI/GII Now resolved, tolerating a diet, no further N/V. Was admitted iwth leukocytosis, hypotension, tachycardia which initially did not respond to IVFs. Tachycardia and BPs now normalized, Blood cs no growth to date, is afebrile, feling great, leukocytosis resolved, no longer lightheaded with standing or hypotensive. Stool biofire positive for norovirus CTAP negative; CXR negative Urinalysis negative; respiratory biofire negative. Lactate WNL, procal elevated at 0.64 and then returned to normal, CRP elevated at 3.44 and then further up on repeat testing to 6 but clinically is improved BMP w/ stable renal function/electrolytes except mildly low mag and K+-replaced Received 24 hrs of Cefepime + Flagyl on admission, then stopped #headache Kernig and brudzinski sign negative , had some associated photophobia, with +FH of migraines. COuld be a first migraine Resolved with IVF hydration, toradol, tylenol DVT prophylaxis: SCD's, ambulation Code status: full Dispo-dc to home Notes For Next Care Provider None Medication Changes From Visit None Admission HPI Per Admitting Provider This is a 19 year old gentleman with no past medical history who presented to the ED on 12/19/24 for a chief complaint of headache and vomiting. Patient reports that around 8pm he had a sudden onset of a severe headache. He then began vomiting profusely there after. He has not had a BM since this began. He admits to epigastric abdominal pain. He denies neck pain. He is experiencing muscle cramps and photophobia. Reports since he got to the ER that his headache has waxed and waned but is triggered most by the lights. He denies a history of migraines but reports his mother has a history of them. Denies fevers or chills. Denies any urinary symptoms. Denies tobacco, alcohol, or drug use, including no marijuana use. He reports this has never happened before. He denies sick contacts recently. While in the ED he was found to have leukocytosis of 15.02, negative CXR. He was hypotensive and tachycardic. He was given 3L of NSS, IV Cefepime, and Zofran. He had just had an episode of emesis prior to our encounter. Discharge Exam Constitutional WD/WN, vitals as above Eyes PERRL, conjunctivae normal, anicteric sclerae ENMT external ear and nose normal, oropharynx normal Neck trachea midline, no thyromegaly Respiratory normal respiratory effort, lungs clear to auscultation Cardiovascular RRR, no murmur, no edema Chest (Breasts) Chest: normal inspection of chest Gastrointestinal (Abdomen) normal bowel sounds, soft, nontender, no hepatosplenomegaly Musculoskeletal Extremities: extremities normal to inspection; no cyanosis and no clubbing Skin no rashes, warm and dry Neurologic moves all extremities and awake; no focal motor deficits Psychiatric A+Ox3, euthymic affect Lymphatic no lymphedema Discharge Plan Discharge Items Patient Disposition: Home - Self-Care Reason For Visit: VOMITING,HEADACHE Discharge Diagnosis: Norovirus with nausea/vomiting/diarrhea Headache-possible migraine Condition on Discharge: Good Activity: Resume your previous activity Non-emergency contact: Primary Care Provider Call non-emergency contact if: you have any medication questions and your symptoms worsen Follow-up/Referrals: [facility] [Primary Care Provider] - (Follow up within 1-2 weeks) Diet: Low Fiber Diet Comment: [place] diet for 2-3 days then gradual return to normal diet Addtl Attending Provider Instructions: You were admitted with a migraine headache and an infection called Norovirus which can cause nausea/vomiting and diarrhea. This has all resolved. Continue to stay well hydrated with fluids. Pending Studies at Discharge: Yes (Final blood cultures-no growth to date) Stand-Alone Forms: Tyto, Smoking Cessation Medications and DC Order Prescriptions: No Action No Known Home Medications Discharge Orders: Discharge Order (Routine); Ordered 12/21/24 Ordered By: Katie Michaels Admission Data Admit Date/Time: 12/19/24 08:31 Attending Provider: Kaite Michaels Admit Provider: Charles Rueda Primary Care Provider: [facility] Other Providers: Charles Rueda Hospital Stay Data Consultations 12/19/24 07:59 ED Decision to Admit Stat Diagnostic Imagining Performed 12/19/24 08:09 CT Abd and Pelvis [CT abd pelvis IV con only] Stat Pending Results Patient Have Any Pending Studies at Discharge: Yes (Final blood cultures-no growth to date) Discharge Instructions Given to Patient (Per Discharging Provider) You were admitted with a migraine headache and an infection called Norovirus which can cause nausea/vomiting and diarrhea. This has all resolved. Continue to stay well hydrated with fluids. Total Time Total Time Spent Total Time Spent (In Minutes): 35 min Total Time Includes: Examination of the Patient, Discharge Planning and Medication Reconciliation Coding Level of Care Code 59486 INP/OBS DISCH >30 MIN Diagnoses Norovirus A08.11 Sepsis A41.9 Headache R51.9
[2024-12-21 11:47] VITALS: PULSE 107
== END 2024-12-21 12:53 | disposition home or self-care (01) | DRG 872 ==
LOC: ED 23:21 → 2S 12-19 08:31 → SUATTDRO 12-19 08:31 → INTOOBSV 12-19 08:31 → 2S 12-19 11:50